=== PATIENT | female | born 1980 | race Caucasian/White ===

== ENCOUNTER 2020-10-10 20:02 | Emergency (ER) | payer SELFPAY ==
[~2020-10-10] VITALS: Ht 167.6 cm; Wt 165.0 kg
[2020-10-10 20:10] VITALS: BP 11/56
--- NOTE | 2020-10-10 20:46 | PHYS DOC ---
Past Medical History Past Medical History: Migraines Additional Past Medical Histor: PTSD, BODERLINE PERSONALITY, ANIXIETY Past Surgical History: Other Additional Past Surgical Histo: GASTRIC SLEEVE Smoking Status: Current Every Day Smoker Alcohol Use: None Additional Information: DENIES General Adult EDM: Chief Complaint: SKIN PROBLEM HPI: HPI: Patient is a 40 year old female presenting to the ED today complaining of skin infection to the right lower extremity. Patient states on Thursday this week she accidentally bumped her right heath on furniture. She states she developed a small cut to the right heath and noted redness around the cut. She states one of her friends is a brain doctor who gave her prescription for doxycycline that was written in the 's name. She states she has been taking the doxycycline for 2 days and feels the infection is getting worse. Denies any fever. Patient would like to be tested for COVID-19. Review of Systems: Review of Systems: Constitutional: Denies fever or chills. [] Musculoskeletal: Denies back pain or joint pain. [] Integument: Reports right lower extremity infection Neurologic: Denies headache, focal weakness or sensory changes. [] Psychiatric: Denies depression or anxiety. [] Heart Score: Risk Factors: Risk Factors: DM, Current or recent (<one month) smoker, HTN, HLP, family history of CAD, obesity. Risk Scores: Score 0 - 3: 2.5% MACE over next 6 weeks - Discharge Home Score 4 - 6: 20.3% MACE over next 6 weeks - Admit for Clinical Observation Score 7 - 10: 72.7% MACE over next 6 weeks - Early Invasive Strategies Current Medications: Current Medications Medications (Trade) Dose Ordered Sig/Bronson Start Time Stop Time Status Last Admin Dose Admin Diphtheria/ Tetanus/Acell Pertussis (ADACEL TDap SYRINGE) 0.5 ml ONCE ONCE 10/10/20 20:45 10/10/20 20:46 UNV Allergies: Allergies: Allergies Coded Allergies Type Severity Reaction Last Updated Verified No Known Drug Allergies 10/10/20 No Physical Exam: PE: Constitutional: Well developed, well nourished, no acute distress, non-toxic appearance. [] Skin: Right anterior heath proximal end with a tiny scabbed up region approximately 1 cm with surrounding mild cellulitis. There is another redness noted on the right inner thigh that could be contact dermatitis considering there is no streaking from this wound. Negative Homans' sign to the right lower extremity. +2 right pedal pulse. Neurovascular exam is intact to the right lower extremity. Back: No tenderness, no CVA tenderness. [] Extremities: No tenderness, no cyanosis, no clubbing, ROM intact, no edema. [] Neurologic: Alert and oriented X 3, normal motor function, normal sensory function, no focal deficits noted. [] Psychologic: Affect normal, judgement normal, mood normal. [] Current Patient Data: Vital Signs: Vital Signs Date Time Temp Pulse Resp B/P (MAP) Pulse Ox O2 Delivery O2 Flow Rate FiO2 10/10/20 20:10 97.9 99 20 (41) 99 Room Air 97.9 EKG: EKG: [] Radiology/Procedures: Radiology/Procedures: [] Course & Med Decision Making: Course & Med Decision Making Pertinent Labs and Imaging studies reviewed. (See chart for details) This is a 40-year-old female patient presenting to the ED today with cellulitis of the right lower extremity. It sounds like she has a prescription of doxycycline that was written in the 's name. She has taken the medicine for 2 days. She feels there is no improvement. I switched patient to Bactrim and cephalexin. She was given tetanus vaccine in the ED. She was also tested for COVID-19 per her request. Discharged to home. Follow-up with PCP. Prosper Disclaimer: Prosper Disclaimer: This electronic medical record was generated, in whole or in part, using a voice recognition dictation system. Departure Departure Impression: Primary Impression: Cellulitis of right lower extremity Additional Impression: Person under investigation for COVID-19 Disposition: 01 DC HOME SELF CARE/HOMELESS Condition: STABLE Referrals: ANTOINE MARCELO MD (PCP) follow up next week Patient Instructions: Cellulitis Additional Instructions: You were seen in the emergency room for cellulitis of the right lower extremity. We put you on Bactrim and cephalexin,, stop taking the doxycycline . Keep the affected area clean and dry. You were tested for COVID-19, we will call you when results are available, in the meantime quarantine yourself. Follow-up with your own doctor in 1 to 2 weeks. Come back to the ED at any point symptoms worsen. Scripts Cephalexin (CEPHALEXIN) 500 Mg Tablet 1 TAB PO QID, #40 TAB Prov: TUSHAR GOMEZ APRN 10/10/20 Sulfamethoxazole/Trimethoprim (BACTRIM DS TABLET) 1 Each Tablet 1 TAB PO BID for 10 Days, #20 TAB 0 Refills Prov: TUSHAR GOMEZ APRN 10/10/20 TUSHAR GOMEZ APRN Oct 10, 2020 20:46
[2020-10-10] MEDS ORDERED: CEPH500T PO (20:57)
[2020-10-10] MEDS ORDERED: SULF1TAB24 PO (20:57)
[2020-10-10] MEDS ORDERED: DIPH,PERTUSS(ACELL),TET VAC/PF 0.5 ML SYRINGE. VAX IM ONE (21:00)
== END 2020-10-10 21:10 | disposition home or self-care (01) ==
LOC: ER 20:02
DX: L03.115 Cellulitis of right lower limb (principal); Z20.828 Contact with and (suspected) exposure to other viral communicable diseases; G43.909 Migraine, unspecified, not intractable, without status migrainosus; F17.200 Nicotine dependence, unspecified, uncomplicated
CPT/HCPCS: 90471; 90715; 99283; C9803; U0003

== ENCOUNTER 2020-12-19 17:30 | Emergency (ER) | payer SELFPAY ==
[~2020-12-19] VITALS: Ht 167.6 cm; Wt 68.0 kg
[~2020-12-19 17:30] MED LIST: CEPH500T PO; SULF1TAB24 PO
[2020-12-19 18:52] LABS: BASO % 0 % (0-3); EOS % 0 % (0-3); HEMATOCRIT 30.9 % (36.0-47.0); LYMPH # 0.3 x10^3/uL (1.0-4.8); LYMPH % 2 % (24-48); MEAN CORPUSCULAR HEMOGLOBIN 27 pg (25-35); MEAN CORPUSCULAR HGB CONC 32 g/dL (31-37); MEAN CORPUSCULAR VOLUME 85 fL (79-100); MONO # 0.9 x10^3/uL (0.0-1.1); MONO % 7 % (0-9); NEUT # 11.1 x10^3/uL (1.8-7.7); NEUT % 91 % (31-73); PLATELET COUNT 270 x10^3/uL (140-400); RED BLOOD COUNT 3.64 x10^6/uL (3.50-5.40); RED CELL DISTRIBUTION WIDTH 14.9 % (11.5-14.5); WHITE BLOOD COUNT 12.2 x10^3/uL (4.0-11.0)
[2020-12-19 19:00] LABS: CALCIUM 8.3 mg/dL (8.5-10.1); CREATININE 1.1 mg/dL (0.6-1.0); POTASSIUM 3.2 mmol/L (3.5-5.1)
[2020-12-19 19:03] LABS: BILIRUBIN,URINE NEGATIVE (NEG); CLARITY,URINE CLEAR; COLOR,URINE YELLOW; NITRITE,URINE POSITIVE (NEG); PROTEIN,URINE 100 mg/dL (NEG-TRACE)
[2020-12-19 19:06] LABS: ALBUMIN 2.4 g/dL (3.4-5.0); ALBUMIN/GLOBULIN RATIO 0.6 (1.0-1.7); TOTAL BILIRUBIN 1.1 mg/dL (0.2-1.0); TOTAL PROTEIN 6.4 g/dL (6.4-8.2)
[2020-12-19 19:11] LABS: BACTERIA,URINE MANY /HPF (0-FEW); RBC,URINE 0 /HPF (0-2); WBC,URINE >40 /HPF (0-4)
[2020-12-19] MEDS ORDERED: IV NORMAL SALINE 1000ML BAG 1,000 ML IV ONE (19:15)
[2020-12-19 19:38] LABS: INFLUENZA A PATIENT NEGATIVE (NEGATIVE); INFLUENZA B PATIENT NEGATIVE (NEGATIVE)
[2020-12-19 20:14] LABS: % BANDS 13 % (0-9); % LYMPHS 1 % (24-48); % MONOS 4 % (0-10); % SEGS 82 % (35-66); PLT ESTIMATE ADEQUATE (ADEQUATE)
[2020-12-19 20:15] LABS: TOXIC GRANULATION SLIGHT
[2020-12-19] MEDS ORDERED: KETOROLAC 30 MG/ML VIAL. IV ONE (21:00)
[2020-12-19] MEDS ORDERED: cefTRIAXone IM 1 GM VIAL IM ONE (21:00)
[2020-12-19] MEDS ORDERED: diphenhydrAMINE 50 MG/ML VIAL ONE (22:28)
[2020-12-19] MEDS ORDERED: PROCHLORPERAZINE 10 MG/2 ML VIAL. ONE (22:28)
[2020-12-19] MEDS ORDERED: DEXAMETHASONE SOD PHOS 20 MG/5 ML VIAL. IV ONE (22:30)
[2020-12-19] MEDS ORDERED: diphenhydrAMINE 50 MG/ML VIAL IVP ONE (22:30)
[2020-12-19] MEDS ORDERED: PROCHLORPERAZINE 10 MG/2 ML VIAL. IV ONE (22:30)
[2020-12-19] MEDS ORDERED: CIPR500T94 PO (23:08)
[2020-12-19] MEDS ORDERED: ONDA4TAB12 PO (23:09)
--- NOTE | 2020-12-19 23:09 | ED.ADGEN ---
Past Medical History Past Medical History: Migraines Additional Past Medical Histor: PTSD, BODERLINE PERSONALITY, ANIXIETY Past Surgical History: Other Additional Past Surgical Histo: GASTRIC SLEEVE Smoking Status: Current Every Day Smoker Alcohol Use: None Social History Narrative: LAST USED YESTERDAY General Adult EDM: Chief Complaint: HEADACHE HPI: HPI: Patient is a 40 year old female who presents to the emergency department today with complaints of a headache, sore throat, body aches, fatigue, headache, dizziness, nausea, vomiting, decreased appetite, dysuria, increased urinary frequency, and urgency. She denies any recent cough or shortness of breath. Patient also denies any chest pain, palpitations, syncope, diarrhea, or abdominal pain. Patient states she was exposed to someone with Covid 2 weeks ago. She reports that she has not experienced any nausea or vomiting in the last 24 hours and states that she last vomited about 48 hours ago. She reports her headache is behind her eyes and it feels like pressure. She denies any vis ion changes. The patient currently rates her headache a 10 out of 10 on the pain scale, she denies any alleviating factors. Review of Systems: Review of Systems: Complete ROS is negative unless otherwise noted in HPI. Current Medications: Current Medications Medications (Trade) Dose Ordered Sig/Bronson Start Time Stop Time Status Last Admin Dose Admin Ceftriaxone Sodium (Rocephin Im) 0.5 gm 1X ONCE 12/19/20 21:00 12/19/20 21:01 DC 12/19/20 20:56 0.5 GM Dexamethasone Sodium Phosphate (Decadron) 10 mg 1X ONCE 12/19/20 22:30 12/19/20 22:31 DC 12/19/20 22:32 10 MG Diphenhydramine HCl (Benadryl) 50 mg STK-MED ONCE 12/19/20 22:28 12/19/20 22:29 DC Ketorolac Tromethamine (Toradol 30mg Vial) 30 mg 1X ONCE 12/19/20 21:00 12/19/20 21:01 DC 12/19/20 20:50 30 MG Prochlorperazine Edisylate (Compazine) 10 mg STK-MED ONCE 12/19/20 22:28 12/19/20 22:29 DC Sodium Chloride 1,000 ml @ 1,000 mls/hr 1X ONCE 12/19/20 19:15 12/19/20 20:14 DC 12/19/20 20:01 1,000 MLS/HR Allergies: Allergies: Allergies Coded Allergies Type Severity Reaction Last Updated Verified No Known Drug Allergies 10/10/20 No Physical Exam: PE: See Above Constitutional: Well developed, well nourished, moderate distress, appears uncomfortable, nontoxic appearance HENT: Normocephalic, atraumatic, bilateral external ears normal, nose normal. [] Eyes: PERRLA, EOMI, conjunctiva normal, no discharge. [] Neck: Normal range of motion, no stridor. [] Cardiovascular:Heart rate regular rhythm Lungs & Thorax: Respirations even and unlabored, no retractions, no respiratory distress Abdomen: soft, no tenderness Skin: Warm, dry, no erythema, no rash. [] Extremities: No cyanosis, ROM intact, no edema. [] Neurologic: Alert and oriented X 3, motor intact, sensory intact, no focal deficits noted. [] Psychologic: Affect normal, judgement normal, mood normal. [] Current Patient Data: Labs: Laboratory Tests Test 12/19/20 17:54 12/19/20 18:04 12/19/20 18:20 12/19/20 18:57 Urine Collection Type Void Urine Color Yellow Urine Clarity Clear Urine pH 7.0 (<5.0-8.0) Urine Specific [place] 1.010 (1.000-1.030) Urine Protein 100 mg/dL (NEG-TRACE) Urine Glucose (UA) Negative mg/dL (NEG) Urine Ketones (Stick) Negative mg/dL (NEG) Urine Blood Trace (NEG) Urine Nitrite Positive (NEG) Urine Bilirubin Negative (NEG) Urine Urobilinogen Dipstick 4.0 mg/dL (0.2 mg/dL) Urine Leukocyte Esterase Large (NEG) Urine RBC 0 /HPF (0-2) Urine WBC >40 /HPF (0-4) Urine Squamous Epithelial Cells Few /LPF Urine Bacteria Many /HPF (0-FEW) POC Urine HCG, Qualitative Hcg negative (Negative) White Blood Count 12.2 x10^3/uL (4.0-11.0) H Red Blood Count 3.64 x10^6/uL (3.50-5.40) Hemoglobin 10.0 g/dL (12.0-15.5) L Hematocrit 30.9 % (36.0-47.0) L Mean Corpuscular Volume 85 fL (79-100) Mean Corpuscular Hemoglobin 27 pg (25-35) Mean Corpuscular Hemoglobin Concent 32 g/dL (31-37) Red Cell Distribution Width 14.9 % (11.5-14.5) H Platelet Count 270 x10^3/uL (140-400) Neutrophils (%) (Auto) 91 % (31-73) H Lymphocytes (%) (Auto) 2 % (24-48) L Monocytes (%) (Auto) 7 % (0-9) Eosinophils (%) (Auto) 0 % (0-3) Basophils (%) (Auto) 0 % (0-3) Neutrophils # (Auto) 11.1 x10^3/uL (1.8-7.7) H Lymphocytes # (Auto) 0.3 x10^3/uL (1.0-4.8) L Monocytes # (Auto) 0.9 x10^3/uL (0.0-1.1) Eosinophils # (Auto) 0.0 x10^3/uL (0.0-0.7) Basophils # (Auto) 0.0 x10^3/uL (0.0-0.2) Segmented Neutrophils % 82 % (35-66) H Band Neutrophils % 13 % (0-9) H Lymphocytes % 1 % (24-48) L Monocytes % 4 % (0-10) Toxic Granulation Slight Dohle Bodies Few Platelet Estimate Adequate (ADEQUATE) Sodium Level 130 mmol/L (136-145) L Potassium Level 3.2 mmol/L (3.5-5.1) L Chloride Level 96 mmol/L (98-107) L Carbon Dioxide Level 26 mmol/L (21-32) Anion Gap 8 (6-14) Blood Urea Nitrogen 10 mg/dL (7-20) Creatinine 1.1 mg/dL (0.6-1.0) H Estimated GFR (Cockcroft-Gault) 55.0 BUN/Creatinine Ratio 9 (6-20) Glucose Level 125 mg/dL (70-99) H Calcium Level 8.3 mg/dL (8.5-10.1) L Total Bilirubin 1.1 mg/dL (0.2-1.0) H Aspartate Amino Transferase (AST) 56 U/L (15-37) H Alanine Aminotransferase (ALT) 60 U/L (14-59) H Alkaline Phosphatase 189 U/L (46-116) H Total Protein 6.4 g/dL (6.4-8.2) Albumin 2.4 g/dL (3.4-5.0) L Albumin/Globulin Ratio 0.6 (1.0-1.7) L Influenza Type A Antigen Negative (NEGATIVE) Influenza Type B Antigen Negative (NEGATIVE) Laboratory Tests 12/19/20 18:20 Laboratory Tests 12/19/20 18:20 Vital Signs: Vital Signs Date Time Temp Pulse Resp B/P (MAP) Pulse Ox O2 Delivery O2 Flow Rate FiO2 12/19/20 23:14 108 16 97 12/19/20 17:50 98.4 124/65 (84) Room Air 98.4 EKG: EKG: [] Heart Score: Risk Factors: Risk Factors: DM, Current or recent (<one month) smoker, HTN, HLP, family history of CAD, obesity. Risk Scores: Score 0 - 3: 2.5% MACE over next 6 weeks - Discharge Home Score 4 - 6: 20.3% MACE over next 6 weeks - Admit for Clinical Observation Score 7 - 10: 72.7% MACE over next 6 weeks - Early Invasive Strategies Radiology/Procedures: Radiology/Procedures: [] Course & Med Decision Making: Course & Med Decision Making Pertinent Labs and Imaging studies reviewed. (See chart for details) 40-year-old female presented emergency department with multiple complaints. Work-up included labs, IV fluids, and medications. CBC revealed a white blood cell count of 12.2, hemoglobin is 10, hematocrit is 30.9, 82% segs with 13 bands; CMP sodium 131 potassium 3.2, chloride 96, 1, calcium of 8.3, total bilirubin 1.1, AST 56, ALT of 60, and alk phos of 189; UA was concerning for positive nitrates, large amount leuk esterase with greater than 40 white blood cells and many bacteria, hCG was negative; rapid flu testing was negative. Patient was given a liter of fluid, and 30 mg Toradol IV. She reported minimal relief of her headache from that medication. The patient also received 500 mg of IM Rocephin for the urinary tract infection. A prescription was written for Cipro 500 mg p.o. twice daily x7 days. The patient was given 10 mg of Compazine, 25 mg of Benadryl, and 10 mg of Decadron. She reported complete resolution of her headache after these medications and stated she would like to go home. Prescription was also written for Zofran to take in case of nausea, I encouraged patient increase clear fluids and avoid bladder irritants, I also informed her of her PUI status, I encouraged her to follow-up with her primary care doctor if symptoms persist, return to ER symptoms worsen. Patient verbalized an understanding of home care, medications, follow-up, and return to ED instructions and was in agreement with the plan of care. [] Dragon Disclaimer: Dragon Disclaimer: This electronic medical record was generated, in whole or in part, using a voice recognition dictation system. Departure Departure Impression: Primary Impression: Person under investigation for COVID-19 Additional Impressions: UTI (urinary tract infection) Headache around the eyes Disposition: 01 DC HOME SELF CARE/HOMELESS Condition: STABLE Referrals: ANTOINE MARCELO MD (PCP) Patient Instructions: General Headache Without Cause, [id number], Urinary Tract Infection, [id number] Additional Instructions: Fill prescription(s) and use as directed. Avoid bladder irritants such as caffeine, carbonation, and spicy foods. Increase clear fluids. Follow up with your primary care doctor if symptoms persist, return to the ER if symptoms worsen. You have been tested for or diagnosed with COVID-19. It is an infection caused by a new type of coronavirus. COVID-19 will cause cold-like or mild flu symptoms in most. It can cause more severe symptoms like problems breathing in some. There is no treatment for COVID-19. The body will clear the infection over time. Self-care will help to ease discomfort. Steps to Take: Self-Care Rest as needed. Healthy habits may help you feel better. Steps include: Choose healthy foods including fruits and vegetables. Drink water throughout the day. Get plenty of sleep each night. If you smoke, try to quit. It may ease breathing. Avoid alcohol. Keep Others Healthy The virus can spread to others. Droplets are released every time you sneeze or cough. The droplets can get into the mouth, nose, or eyes of people near you and lead to in fection. To lower the chances of spreading COVID-19 to others: Stay at home until your doctor has said it is safe to leave. If you tested positive this will mean staying isolated until both of the following are true: At least 7 days have passed since the start of illness. You are free of fever for at least 72 hours without the use of medicine. During this time: - Avoid public areas, events, or transportation. Do not return to work or school until your doctor has said it is safe to do so. - Call ahead if you need to go to a medical center. Let them know you may have COVID-19. It will help them guide you where to go. They may also ask you to wear a facemask when you come to the office. - If you call for emergency medical services, let them know you may have COVID- 19. While at home: - Try to avoid close contact with others. Stay about 6 feet away. - If possible, spend most of your time in a separate room from others. - Use a face mask if you will be in close contact with others such as sharing a room or vehicle. - Have someone wipe down common surfaces in the home. Use household assistant press operator every day on areas like doorknobs, counters, or sinks. - Cough or sneeze into a tissue. Throw the tissue away right after use. If a tissue is not available, cough or sneeze into your elbow. - Wash your hands often. Wash them after sneezing or coughing. Use soap and water and wash for at least 20 seconds. Alcohol based hand spice cleaner can be used if soap and water is not available. - Do not prepare food for others. Avoid sharing personal items like forks, spoons, or toothbrushes. - Avoid close contact with pets while you are sick. There is no evidence of the virus passing to pets. This is a safety step until more is known about this virus. Isolation can be frustrating. Social interaction can help. Keep in touch with friends and family through phone and tech options. You can still interact with others in your home, just keep a safe distance of about 6 feet. Follow-up: Your doctors office will check in with you to see if there are any changes in your health. You may be asked to keep track of symptoms to share with them. They will also let you know when you are clear to be in public again. Problems to Look Out For: Contact your doctor if your recovery is not going as you expect. Get emergency care if you have problems such as: - Trouble breathing - Nonstop chest pain or pressure - Changes in awareness, confusion, or problems waking - Lips or face have bluish color - Worsening of symptoms If you think you have an emergency, call for emergency medical services right away. As taken from [facility] [place] Health Scripts Ondansetron (ONDANSETRON ODT) 4 Mg Tab.rapdis 1 TAB PO PRN Q6-8HRS PRN for NAUSEA/VOMITING for 4 Days, #16 TAB 0 Refills Prov: LI GUPTA APRN 12/19/20 Ciprofloxacin Hcl (CIPRO) 500 Mg Tablet 1 TAB PO BID for 7 Days, #14 TAB 0 Refills Prov: LI GUPTA APRN 12/19/20 Problem Qualifiers Additional Impressions: UTI (urinary tract infection) Urinary tract infection type: site unspecified Hematuria presence: without hematuria Qualified Codes: N39.0 - Urinary tract infection, site not specified LI GUPTA APRN Dec 19, 2020 23:09
[2020-12-19 23:14] VITALS: BP 106/57
--- NOTE | 2020-12-21 08:55 | NUR ---
IP: Attempted to contact pt concerning COVID results. No answer. Left a voicemail to return the call.
== END 2020-12-20 00:27 | disposition home or self-care (01) ==
LOC: ER 17:30
DX: N39.0 Urinary tract infection, site not specified (principal); Z20.822 Contact with and (suspected) exposure to COVID-19; G43.909 Migraine, unspecified, not intractable, without status migrainosus; J02.9 Acute pharyngitis, unspecified; F17.200 Nicotine dependence, unspecified, uncomplicated; Z98.890 Other specified postprocedural states
CPT/HCPCS: 36415; 80053; 81001; 81025; 85007; 85025; 87077; 87086; 87186; 87804; 96361; 96372; 96374; 96375; 99285; C9803; J0696; J0780; J1100; J1200; J1885; J7030; U0003

== ENCOUNTER 2021-03-11 19:38 | Emergency (ER) | payer SELFPAY ==
[~2021-03-11] VITALS: Ht 167.6 cm; Wt 68.1 kg
[~2021-03-11 19:38] MED LIST changes: +CIPR500T94 PO; +ONDA4TAB12 PO
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
--- NOTE | 2021-03-11 22:19 | EKG ---
[facility] [address] [place] [address] Test Date: 2021-03-11 Test Time: 22:13:55 Pat Name: MARIANA SIMMONS Department: Room: Gender: F [employer] Operator: : [id number] Requested By: LI GUPTA Order Number: [id number] Reading MD: Measurements Intervals [place] Rate: 74 P: OK: QRS: 49 QRSD: 86 T: 68 QT: 372 QTc: 413 Interpretive Statements IRREGULAR RHYTHM, NO P-WAVE FOUND OTHERWISE NORMAL ECG RI6.02 No previous ECG available for comparison
[2021-03-11 22:34] LABS: BASO % 1 % (0-3); EOS # 0.1 x10^3/uL (0.0-0.7); EOS % 1 % (0-3); HEMATOCRIT 35.9 % (36.0-47.0); HEMOGLOBIN 11.9 g/dL (12.0-15.5); LYMPH # 1.3 x10^3/uL (1.0-4.8); LYMPH % 15 % (24-48); MEAN CORPUSCULAR HEMOGLOBIN 27 pg (25-35); MEAN CORPUSCULAR HGB CONC 33 g/dL (31-37); MEAN CORPUSCULAR VOLUME 82 fL (79-100); MONO # 0.5 x10^3/uL (0.0-1.1); MONO % 6 % (0-9); NEUT # 6.7 x10^3/uL (1.8-7.7); NEUT % 78 % (31-73); PLATELET COUNT 367 x10^3/uL (140-400); RED BLOOD COUNT 4.36 x10^6/uL (3.50-5.40); RED CELL DISTRIBUTION WIDTH 15.3 % (11.5-14.5); WHITE BLOOD COUNT 8.7 x10^3/uL (4.0-11.0)
[2021-03-11 22:40] LABS: BILIRUBIN,URINE NEGATIVE (NEG); CLARITY,URINE CLOUDY; COLOR,URINE YELLOW; NITRITE,URINE POSITIVE (NEG); PROTEIN,URINE NEGATIVE (NEG-TRACE)
[2021-03-11 22:42] LABS: AMPHETAMINE/METHAMPHETAMINE POS (NEG); BACTERIA,URINE MANY /HPF (0-FEW); BARBITURATES NEG (NEG); BENZODIAZEPINES NEG (NEG); CANNABINOIDS POS (NEG); COCAINE NEG (NEG); METHADONE NEG (NEG); OPIATES NEG (NEG); PHENCYCLIDINE NEG (NEG); RBC,URINE 0 /HPF (0-2); WBC,URINE >40 /HPF (0-4)
[2021-03-11 22:42] LABS: CALCIUM 8.5 mg/dL (8.5-10.1); CREATININE 0.9 mg/dL (0.6-1.0); GFR 69.3; POTASSIUM 3.8 mmol/L (3.5-5.1)
[2021-03-11 22:46] LABS: ACETAMIN < 2 mcg/ml (10-30); SALIC < 2.8 mg/dL (2.8-20.0)
[2021-03-11 22:47] LABS: ETHANOL < 10 mg/dL (0-10)
[2021-03-11 22:48] LABS: ALBUMIN 3.4 g/dL (3.4-5.0); ALBUMIN/GLOBULIN RATIO 0.9 (1.0-1.7); TOTAL BILIRUBIN 0.5 mg/dL (0.2-1.0); TOTAL PROTEIN 7.3 g/dL (6.4-8.2)
[2021-03-11] MEDS ORDERED: LIDOCAINE 1% PF 2 ML VIAL. ONE (23:06)
[2021-03-11] MEDS ORDERED: PHEN-318 PO (23:08)
[2021-03-11] MEDS ORDERED: NITR100C62 PO (23:08)
[2021-03-11 23:20] VITALS: BP 135/69
[2021-03-11] MEDS ORDERED: cefTRIAXone IV Push 1 GM VIAL. IVP ONE (23:30)
[2021-03-11] MEDS ORDERED: cefTRIAXone IM 1 GM VIAL IM ONE (23:30)
[2021-03-11] MEDS ORDERED: ACETAMINOPHEN 500 MG TABLET PO ONE (23:30)
== END 2021-03-11 23:25 | disposition left against medical advice (07) ==
LOC: ER 19:38
DX: S00.03XA Contusion of scalp, initial encounter (principal); N39.0 Urinary tract infection, site not specified; F15.20 Other stimulant dependence, uncomplicated; M54.2 Cervicalgia; R11.0 Nausea; G43.909 Migraine, unspecified, not intractable, without status migrainosus; F17.200 Nicotine dependence, unspecified, uncomplicated; F12.90 Cannabis use, unspecified, uncomplicated; Z98.890 Other specified postprocedural states; Y08.89XA Assault by other specified means, initial encounter; Y93.89 Activity, other specified; Y92.89 Other specified places as the place of occurrence of the external cause; Y99.8 Other external cause status
CPT/HCPCS: 36415; 70450; 72125; 80053; 80307; 80329; 81001; 81025; 85025; 87086; 93005; 96372; 99285; G0480; J0696